=== PATIENT | male | born 1950 | race African-American/Black ===

== ENCOUNTER 2022-04-19 21:06 | Observation (INO) | payer OTHER ==
--- OUTSIDE RECORDS SUMMARY | 2022-04-19 21:10 | XMS REPORT | Continuity of Care Document ---
:1950 Author Organization [facility] t Address [address] [place] [address] Care Team Providers Name Role Phone Provider MD, Not In System Primary Care Physician Unavailabl e Karlene Attending Clinician Unavailable Jayy Hogan Attending Clinician [phone] CUBA WESTON Attending Clinician Unavailable Karlene Admitting Clinician Unavailable Payers Payer Name Policy Type Policy Number Effective Date Expiration Date [facility] [id number] 2002 00:00:00 Problems Condition Condition Condition Status Onset Resolution Last Treating Co mments Source Name Details Category Date Date Treatment Clinician Date Pain in Pain in Problem Active [facility] pelvis Pelvis 908 Orthope 00:00: dic 00 Sports Medicin e Osteoarthr Osteoarthr Problem Active A zalea itis of itis of 11-18 Orthope right hip Right Hip 00:00: dic joint Joint 00 Sports Medicin e Osteoarthr Osteoarthr Problem Active A zalea itis of itis of 08 Orthope left hip Left Hip 00:00: dic joint Joint 00 Sports Medicin e Encounter Encounter Disease Active 2020-03 Met aleydai for for 03-16 completion completion 00:00: Ho spita of form of form 00 l with with patient patient Acute Acute Disease Active [facility] right-side right-side 11-12 d low back d low back 00:00: Ho spita pain pain 00 l without without sciatica sciatica Follow-up Follow-up Disease Active Met rosalind examinatio examinatio 1-09 st n n 00:00: Hospita following following 00 l surgery surgery Lumbar Lumbar Disease Active 2018-03 [facility] radiculopa radiculopa 0-10 st thy, right thy, right 00:00: Ho spita 00 l Cervical Cervical Disease Active Metho di spondylosi spondylosi 5-01 st s without s without 00:00: Hosp karla myelopathy myelopathy 00 l Allergies, Adverse Reactions, Alerts Allergy Allergy Status Severity Reaction(s) Onset Inactive Treating Comm ents Source Name Type Date Date Clinician Latex Propensi Active Itching 2018-03 redness Method i ty to 0 st adverse 00:00: Hospita reaction 00 l s to drug Penicill Propensi Active Swelling 2018-03 Meth jude in G ty to 0-09 st adverse 00:00: Hospita reaction 00 l s to drug PENICILL Allergy Active [facility] INS to Orthope substanc dic e Sports Medicin e Family History Family Member Diagnosis Comments Start Date Stop Date Source Natural brother Cancer [facility] Natural father Cancer [facility] Natural mother Cancer [facility] Social History Social Habit Start Date Stop Date Quantity Comments Source History of tobacco Current smoker [facility] Alcohol intake 2021-01-14 2021-01-14 Current drinker of [facility] 00:00:00 00:00:00 alcohol (finding) Hospita l Cigarettes smoked 2018-12-19 2018-12-[address] [facility] st current (pack per 00:00:00 00:00:00 Hospita l day) - Reported Cigarette 2018-12-19 2018-12-19 [facility] pack-years 00:00:00 00:00:00 Hospital Tobacco use and 2018-12-19 2018-12-19 Smokeless tobacco [facility] exposure 00:00:00 00:00:00 non-user Hospital Alcohol Comment 2018-12-19 2018-12-19 ocassionally 1-2 Met aleydaist 00:00:00 00:00:00 drinks Hospital Sex Assigned At [birth year] [facility] 00:00:00 00:00:00 Hospital Smoking Status Start Date Stop Date Source Former Smoker [facility] Medications Ordered Filled Start Stop Current Ordering Indication Dosage Frequency Signature Comments Components Source Medication Medication Date Date Medication? Clinician (SIG) Name Name MICA 10 0 Yes 10mg QD Take 10 mg [facility] mg tablet 2-[address] 00:00: nightly. Hospita 00 l azithromyci azithromyci No azithromyc [facility] n 250 mg n 250 mg in 250 mg Or thope tablet TAKE tablet TAKE tablet dic 2 TABLETS 2 TABLETS TAKE 2 Spo rts BY MOUTH BY MOUTH TABLETS BY M edicin TODAY, THEN TODAY, THEN MOUTH e TAKE 1 TAKE 1 TODAY, TABLET TABLET THEN TAKE DAILY FOR 4 DAILY FOR 4 1 TABLET DAYS DAYS DAILY FOR 4 DAYS gabapentin gabapentin No gabapentin [facility] 300 mg 300 mg 300 mg Orthope capsule capsule capsule dic TAKE 1 TAKE 1 TAKE 1 Sports CAPSULE BY CAPSULE BY CAPSULE BY Medicin MOUTH 3 MOUTH 3 MOUTH 3 e TIMES A DAY TIMES A DAY TIMES A FOR 30 FOR 30 DAY FOR 30 DAYS. DAYS. DAYS. Guaiatussin Guaiatussin No Guaiatussi [facility] AC 10 AC 10 n AC 10 Orthope mg-100 mg/5 mg-100 mg/5 mg-100 dic mL oral mL oral mg/5 mL Sports liquid TAKE liquid TAKE oral M edicin ONE ONE liquid e TEASPOON BY TEASPOON BY TAKE ONE MOUTH EVERY MOUTH EVERY TEASPOON FOUR TO SIX FOUR TO SIX BY MOUTH HOURS. HOURS. EVERY FOUR TO SIX HOURS. losartan 50 losartan 50 No losartan [facility] mg tablet mg tablet 50 mg Orth ope TAKE 1 TAKE 1 tablet dic TABLET BY TABLET BY TAKE 1 Spo rts MOUTH EVERY MOUTH EVERY TABLET BY Medicin DAY NEED DAY NEED MOUTH e OFFICE OFFICE EVERY DAY VISIT VISIT NEED OFFICE VISIT meloxicam meloxicam No 1 meloxicam [facility] 15 mg 15 mg 15 mg Orthope tablet Take tablet Take tablet dic 1 tablet by 1 tablet by Take 1 Sports oral route oral route tablet by Medicin in the in the oral route e morning. morning. in the morning. meloxicam meloxicam No meloxicam [facility] 7.5 mg 7.5 mg 7.5 mg Orthope tablet TAKE tablet TAKE tablet dic 1 TABLET BY 1 TABLET BY TAKE 1 Sports MOUTH EVERY MOUTH EVERY TABLET BY Medicin DAY FOR 30 DAY FOR 30 MOUTH e DAYS DAYS EVERY DAY FOR 30 DAYS tramadol tramadol No tramadol Aza holli 37.5 37.5 37.5 Orthope mg-acetamin mg-acetamin mg-acetami dic ophen 325 ophen 325 nophen 325 Sports mg tablet mg tablet mg tablet Medicin TAKE 1 -2 TAKE 1 -2 TAKE 1 -2 e TABLETS , TABLETS , TABLETS , EVERY 4 TO EVERY 4 TO EVERY 4 TO 6 HOURS 6 HOURS 6 HOURS NEEDED FOR NEEDED FOR NEEDED FOR PAIN,DO NOT PAIN,DO NOT PAIN,DO TO EXCEED 8 TO EXCEED 8 NOT TO TABLETS PER TABLETS PER EXCEED 8 DAY DAY TABLETS PER DAY Vital Signs Vital Name Observation Time Observation Value Comments Source Height 2021-11-18 00:00:00 73 [in_i] [facility] Body Weight 2021-11-18 00:00:00 230 [lb_av] [facility] Procedures Procedure Date / Time Performed Performing Clinician Catherine richmond RADEX PELVIS 03/142021-11-18 00:00:00 [facility] VIEWS Sports Medicine Back Surgery [facility] Hand Surgery [facility] Knee Surgery [facility] Neck Surgery [facility] Plan of Care Planned Activity Planned Date Details Comments Source Future Scheduled 2022-02-23 Hepatitis C screening [facility] Test 14:24:57 (procedure) [code = [id number]] Future Scheduled 2022-02-23 COLONOSCOPY SCREENING [facility] Test 14:24:57 [code = COLONOSCOPY SCREENING] Future Scheduled 2022-02-23 SHINGLES VACCINES (1 [facility] Test 14:24:57 of 2) [code = SHINGLES VACCINES (1 of 2)] Future Scheduled 2022-02-23 65+ PNEUMOCOCCAL [facility] Test 14:24:57 VACCINE (1 - PCV) [code = 65+ PNEUMOCOCCAL VACCINE (1 - PCV)] Future Scheduled 2022-02-23 COVID-19 VACCINE (2 - [facility] Test 14:24:57 Moderna series) [code = COVID-19 VACCINE (2 - Moderna series)] Future Scheduled 2022-02-23 INFLUENZA VACCINE [facility] Test 14:24:57 [code = INFLUENZA VACCINE] Encounters Start End Encounter Admission Attending Care Care Encounter Source Date/Time Date/Time Type Type Clinicians Facility Department ID 2021-11-18 2021-11-18 Outpatient FOG_Burke_R AOSM AOSM [id number] [facility] 00:00:00 00:00:00 Ayaka [id number] Ortho pe dic Sports Medicin e 2021-11-18 2021-11-18 Outpatient DEANA Hogan AOSM [id number] 00:00:00 00:00:00 Jayy Lutz [id number] 2021-11-18 2021-11-18 Jayy Lutz AOS[facility] [place] - Ortho [id number] [facility] 00:00:00 00:00:00 MD Edison: Nilda Garcia - Orthopyi [address] [facility] [place], [address], [place] [address] , Ph. [phone] 2021-11-16 2021-11-16 Outpatient FOG_Burke_R AOSM AOSM [id number] [facility] 00:00:00 00:00:00 Ayaka [id number] Ortho pe dic Sports Medicin e 2021-11-10 2021-11-10 Outpatient FOG_Burke_R AOSM AOSM [id number] Olive 00:00:00 00:00:00 Ayaka [id number] Ortho pe dic Sports Medicin e 2021-11-03 2021-11-03 Outpatient FOG_Burke_R AOSM AOSM [id number] Olive 00:00:00 00:00:00 Ayaka [id number] Ortho pe dic Sports Medicin e 2021-01-14 2021-01-14 Outpatient [facility] [id number] [place] 00:00:00 00:00:00 CUBA 745 Method i 2021-01-14 2021-01-14 Outpatient [facility] [id number] [place] 00:00:00 00:00:00 CUBA 864 Method i 2020-12-28 2020-12-28 Outpatient [facility] [id number] [place] 00:00:00 00:00:00 CUBA [address] 2020-11-12 2020-11-12 Outpatient [facility] [id number] [place] 00:00:00 00:00:00 CUBA [address] 2020-11-12 2020-11-12 Outpatient [facility] [id number] [place] 00:00:00 00:00:00 CUBA [address] 2020-03-23 2020-03-23 Outpatient [facility] [id number] [place] 00:00:00 00:00:00 CUBA [address] 2020-03-23 2020-03-23 Outpatient [facility] [id number] [place] 00:00:00 00:00:00 CUBA [address] Results This patient has no known results.
[2022-04-19] MEDS ORDERED: ASPIRIN 81 MG CHEWABLE TABLET ONE (21:29)
[2022-04-19 22:03] LABS: Absolute Lymphocytes (CBC) 1.4 K/uL (0.7-4.9); Hematocrit 37.1 % (39.6-49.0); Lymphocytes % 28.4 % (15.3-44.8); MCV 74.5 fL (80-100); MPV 6.9 fL (7.6-11.3); RBC Red Blood Cell Count 4.97 M/uL (4.33-5.43)
--- NOTE | 2022-04-19 22:12 | RAD REPORT ---
EXAM DESCRIPTION: CT - Angio Aorta For Dissection - 04/19/2022 9:57 pm CLINICAL HISTORY: Chest pain radiating to the back. PAIN COMPARISON: No comparisons TECHNIQUE: CT angiography of the aorta was performed with MIPs. All CT scans are performed using dose optimization technique as appropriate and may include automated exposure control or mA/KV adjustment according to patient size. FINDINGS: A left aortic arch is present with normal branching pattern of the great vessels.No acute aortic finding is seen such as aneurysm, penetrating ulcer or dissection. The celiac axis, SMA, ADRIANNE and renal arteries are patent. No evidence of pulmonary embolism. The lungs are clear. The liver demonstrates no focal mass or biliary dilatation.The spleen, pancreas, adrenal glands and k idneys are within normal limits for arterial phase imaging.4.6 cm benign left renal cyst. No bowel obstruction, free fluid or abscess.No pathologic enlarged lymphadenopathy identified. Moderate lumbar degenerative changes. IMPRESSION: No acute aortic finding is demonstrated.
--- NOTE | 2022-04-19 22:13 | RAD REPORT ---
EXAM DESCRIPTION: RAD - Chest Single View - 04/19/2022 10:06 pm CLINICAL HISTORY: CHEST PAIN Chest pain. COMPARISON: Chest Pa And Lat (2 Views) dated 08/30/2018; Chest Pa And Lat (2 Views) dated 10/02/2017; Chest Pa And Lat (2 Views) dated 06/16/2017; CHEST SINGLE VIEW dated 05/11/2012 FINDINGS: Portable technique limits examination quality. The lungs are grossly clear. The heart is normal in size. No displaced fractures. IMPRESSION: No acute intrathoracic process suspected.
[2022-04-19 22:19] LABS: Magnesium 2.1 mg/dL (1.6-2.4); Potassium 3.7 mmol/L (3.5-5.1); Troponin High Sensitivity 16.9 pg/mL (<58.9)
[2022-04-19] MEDS ORDERED: NA CHLORIDE 0.9% 1,000 ML ONE (22:56)
--- NOTE | 2022-04-19 23:03 | ER ---
Nurse's Notes [facility] Name: Chu Desouza Age: 71 yrs Sex: Male : 1950 Arrival Date: 04/19/2022 Time: 21:10 Bed 5 Private MD: Diagnosis: Chest pain, unspecified Presentation: 04/19 21:27 Chief complaint: Patient states: C/o chest pain 10 since 3 PM, states "I was lifting ll3 a couple of 55 lb bags then I started to feel the pain", states pain started in left pectoral area then moved to midsternal area. Coronavirus screen: Vaccine status: Patient reports receiving the 2nd dose of the covid vaccine. At this time, the client does not indicate any symptoms associated with coronavirus-19. Ebola Screen: No symptoms or risks identified at this time. Initial Sepsis Screen: Does the patient meet any 2 criteria? No. Patient's initial sepsis screen is negative. Does the patient have a suspected source of infection? No. Patient's initial sepsis screen is negative. Risk Assessment: Do you want to hurt yourself or someone else? Patient reports no desire to harm self or others. Onset of symptoms was April 19, 2022 at 15:00. 21:27 Method Of Arrival: Ambulatory ll3 21:27 Acuity: YG 2 ll3 Triage Assessment: 21:31 General: Appears uncomfortable, Behavior is calm, cooperative. Pain: Complains of pain ll3 in mid-sternal area Pain does not radiate. Pain currently is 3 out of 10 on a pain scale. Pain began 3 pm. Cardiovascular: Reports chest pain, Patient's skin is warm and dry. Chest pain is described as mild, is located in substernal area began 3 pm. Respiratory: Respiratory effort is even, unlabored, Respiratory pattern is regular, symmetrical. Derm: Skin is pink, warm \\T\\ dry. Historical: - Allergies: 21:31 PENICILLINS; ll3 - Home Meds: 21:31 losartan 10 MG oral [Active]; ll3 - PMHx: 21:31 Hypertensive disorder; ll3 - PSHx: 21:31 Back SX, Neck SX; ll3 - Immunization history:: Client reports receiving the 2nd dose of the Covid vaccine. - Social history:: Smoking status: Patient denies any tobacco usage or history of. Screenin:40 [facility] ED Fall Risk Assessment (Adult) History of falling in the last 3 months, mb9 including since admission No falls in past 3 months (0 pts) Confusion or Disorientation No (0 pts) Intoxicated or Sedated No (0 pts) Impaired Gait No (0 pts) Mobility Assist Device Used No (0 pt) Altered Elimination No (0 pt) Score/Fall Risk Level 0 - 2 = Low Risk Oriented to surroundings, Maintained a safe environment, Educated pt \\T\\ family on fall prevention, incl call for assistance when getting out of bed. Abuse screen: Denies threats or abuse. Nutritional screening: No deficits noted. Nutritional screening: No deficits noted. Tuberculosis screening: No symptoms or risk factors identified. Assessment: 21:36 General: Appears in no apparent distress. comfortable, Behavior is calm, cooperative, mb9 appropriate for age. Pain: Complains of pain in chest Pain radiates to mid-sternal area Pain currently is 2 out of 10 on a pain scale. Quality of pain is described as burning, Pain began suddenly, Is intermittent. Cardiovascular: Heart tones S1 S2 present Capillary refill < 3 seconds is brisk Patient's skin is warm and dry. Rhythm is regular. Respiratory: Airway is patent Respiratory effort is even, unlabored, Respiratory pattern is regular, symmetrical. GI: Abdomen is round non-distended, Bowel sounds present X 4 quads. Abd is soft and non tender X 4 quads. Derm: Skin is intact, Skin is dry, Skin is normal, Skin temperature is warm. Musculoskeletal: Range of motion: intact in all extremities. 21:40 Reassessment: pt taken to CT via stretcher. mb9 22:43 Neuro: Level of Consciousness is awake, alert, obeys commands, Oriented to person, mb9 place, time, situation, Appropriate for age. Cardiovascular: Reports chest pain, "that comes and goes but it's not as bad right now". Respiratory: Airway is patent Respiratory effort is even, unlabored, Respiratory pattern is regular, symmetrical. Derm: Skin is pink, warm \\T\\ dry. 23:37 Cardiovascular: Rhythm is regular. Respiratory: Airway is patent Respiratory effort is mb9 even, unlabored, Respiratory pattern is regular, symmetrical. Derm: Skin is pink, warm \\T\\ dry. Vital Signs: 21:27 BP 142 / 110; Pulse 108; Resp 18; Temp 97.8(TE); Pulse Ox 100% on R/A; Weight 102.06 kg ll3 (R); Height 6 ft. 1 in. (185.42 cm) (R); Pain 3/10; 22:44 BP 140 / 97; Pulse 90; Resp 16; Pulse Ox 100% on R/A; Pain 2/10; mb9 23:37 BP 137 / 97; Pulse 88; Resp 17; Pulse Ox 98% ; mb9 21:27 Body Mass Index 29.68 (102.06 kg, 185.42 cm) ll3 ED Course: 21:10 Patient arrived in ED. ja2 21:14 Placed in gown. Bed in low position. Call light in reach. Side rails up X 1. Client mb9 placed on continuous cardiac and pulse oximetry monitoring. NIBP monitoring applied. telemetry monitor on. 21:16 Saundra Hurtado FNP-C is PHCP. kb 21:16 Monroe Villalta MD is Attending Physician. kb 21:24 Heidy Malave RN is Primary Nurse. mb9 21:25 EKG done, by ED staff, reviewed by Saundra DUBOSE. Inserted saline lock: 18 mb9 gauge in right forearm, using aseptic technique. Blood collected. 21:31 Triage completed. ll3 21:31 Arm band placed on Patient placed in an exam room, on a stretcher, on pulse oximetry. ll3 EKG completed in triage. Results shown to MD. 21:43 Basic Metabolic Panel Sent. tw5 21:43 CBC with Diff Sent. tw5 21:43 Magnesium Sent. tw5 21:43 NT PRO-BNP Sent. tw5 21:43 Troponin HS Sent. tw5 21:58 CT Aorta for Dissection In Process Unspecified. EDMS 22:08 XRAY Chest (1 view) In Process Unspecified. EDMS 22:46 No provider procedures requiring assistance completed. mb9 23:03 Juan Ramon Thomson MD is Hospitalizing Provider. kb 23:37 SARS RAPID Sent. mb9 02 01:58 Patient admitted, IV remains in place. Patient maintains SpO2 saturation greater than as6 95% on room air. Administered Medications: 04/19 21:27 Drug: Aspirin Chewable Tablet 324 mg Route: PO; mb9 23:33 Follow up: Response: No adverse reaction mb9 22:58 Drug: NS 0.9% 1000 ml Route: IV; Rate: 1000 ml; Site: right forearm; mb9 04/20 01:58 Follow up: Response: No adverse reaction; IV Status: Completed infusion; IV Intake: as6 1000ml Medication: 04/19 22:47 VIS not applicable for this client. mb9 Intake: 04/20 01:58 IV: 1000ml; Total: 1000ml. as6 Outcome: 04/19 23:03 Decision to Hospitalize by Provider. kb 04/20 01:57 Admitted to Tele accompanied by tech, via wheelchair, room 422, with chart, Report as6 called to Jeo KINNEY Condition: stable Instructed on the need for admit. 01:58 Patient left the ED. as6 Signatures: Dispatcher [employer] EDSaundra Dueñas, DUMPER-C DUMPER-Ckb [place] Tiffany tw5 Jorge Plummer RN RN as6 Vivien Osborn RN RN ll3 Heidy Malave, RN RN mb9
--- NOTE | 2022-04-19 23:03 | EDPHYS ---
Physician Documentation [facility] Name: Chu Desouza Age: 71 yrs Sex: Male : 1950 Arrival Date: 04/19/2022 Time: 21:10 Bed 5 Private MD: ED Physician Monroe Villalta HPI: 04/19 22:34 This 71 yrs old Black Male presents to ER via Ambulatory with complaints of Chest Pain. kb 22:58 The patient or guardian reports chest pain that is located primarily in the substernal kb area. Onset: at 15:00. The pain radiates to left chest. Associated signs and symptoms: The patient has no apparent associated signs or symptoms. The chest pain is described as a pressure. Duration: The patient or guardian reports a single episode. Modifying factors: The symptoms are alleviated by nothing. the symptoms are aggravated by cough. Severity of pain: At its worst the pain was moderate in the emergency department the pain is unchanged. The patient has not experienced similar symptoms in the past. The patient has not recently seen a physician. Historical: - Allergies: 21:31 PENICILLINS; ll3 - Home Meds: 21:31 losartan 10 MG oral [Active]; ll3 - PMHx: 21:31 Hypertensive disorder; ll3 - PSHx: 21:31 Back SX, Neck SX; ll3 - Immunization history:: Client reports receiving the 2nd dose of the Covid vaccine. - Social history:: Smoking status: Patient denies any tobacco usage or history of. ROS: 22:57 Constitutional: Negative for fever, chills, and weight loss. kb 22:57 Cardiovascular: Positive for chest pain, Negative for edema, orthopnea, palpitations, paroxysmal nocturnal dyspnea. 22:57 All other systems are negative. Exam: 22:57 Constitutional: This is a well developed, well nourished patient who is awake, alert, kb and in no acute distress. Head/Face: Normocephalic, atraumatic. ENT: Moist Mucous membranes Cardiovascular: Regular rate and rhythm with a normal S1 and S2. No gallops, murmurs, or rubs. No pulse deficits. Respiratory: Respirations even and unlabored. No increased work of breathing. Talking in full sentences Abdomen/GI: Soft, non-tender. No distention Skin: Warm, dry with normal turgor. Normal color. MS/ Extremity: Pulses equal, no cyanosis. Neurovascular intact. Full, normal range of motion. Neuro: Awake and alert, GCS 15, oriented to person, place, time, and situation. Moves all extremities. Normal gait. 04/20 00:03 ECG was reviewed by the Attending Physician. Vital Signs: 04/19 21:27 BP 142 / 110; Pulse 108; Resp 18; Temp 97.8(TE); Pulse Ox 100% on R/A; Weight 102.06 kg ll3 (R); Height 6 ft. 1 in. (185.42 cm) (R); Pain 3/10; 22:44 BP 140 / 97; Pulse 90; Resp 16; Pulse Ox 100% on R/A; Pain 2/10; mb9 23:37 BP 137 / 97; Pulse 88; Resp 17; Pulse Ox 98% ; mb9 21:27 Body Mass Index 29.68 (102.06 kg, 185.42 cm) ll3 MDM: 21:16 Patient medically screened. kb 22:34 Data reviewed: vital signs, nurses notes. kb 22:58 Differential diagnosis: abnormal EKG, acute myocardial infarction, chest wall pain. The patient was given aspirin in the Emergency Department. Consideration of Admission/Observation Patient was admitted/placed on observation. Management of patient was discussed with the following: Primary Care Provider: Dr Thomson accepts pt for admission. Scoring Tools HEART Score: Total Score = 3. Counseling: I had a detailed discussion with the patient and/or guardian regarding: the historical points, exam findings, and any diagnostic results supporting the discharge/admit diagnosis, lab results, radiology results, the need for further work-up and treatment in the hospital. 04/19 21:24 Order name: Basic Metabolic Panel; Complete Time: 22:22 kb 04/19 21:24 Order name: CBC with Diff; Complete Time: 22:22 kb 04/19 21:24 Order name: Magnesium; Complete Time: 22:22 kb 04/19 21:24 Order name: NT PRO-BNP; Complete Time: 22:22 kb 04/19 21:24 Order name: Troponin HS; Complete Time: 22:22 kb 04/19 22:17 Order name: CREATININE WHOLE BLOOD; Complete Time: 22:22 EDMS 04/19 21:24 Order name: XRAY Chest (1 view); Complete Time: 22:22 kb 04/19 21:24 Order name: EKG; Complete Time: 21:24 kb 04/19 21:24 Order name: Cardiac monitoring; Complete Time: 21:24 kb 04/19 21:24 Order name: EKG - Nurse/Tech; Complete Time: 21:24 kb 04/19 21:24 Order name: CT Aorta for Dissection; Complete Time: 22:22 kb 04/19 23:33 Order name: SARS RAPID mb9 04/19 21:24 Order name: IV Saline Lock; Complete Time: 21:32 kb 04/19 21:24 Order name: Labs collected and sent; Complete Time: 21:43 kb 04/19 21:24 Order name: O2 Per Protocol; Complete Time: 21:24 kb 04/19 21:24 Order name: O2 Sat Monitoring; Complete Time: 21:24 kb EC/08 00:03 Rate is 94 beats/min. Rhythm is regular. Left axis deviation noted. ND interval is kb normal at 164 msec. QRS interval is normal at 110 msec. QT interval is normal at 467 msec. Administered Medications: 04/19 21:27 Drug: Aspirin Chewable Tablet 324 mg Route: PO; mb9 23:33 Follow up: Response: No adverse reaction mb9 22:58 Drug: NS 0.9% 1000 ml Route: IV; Rate: 1000 ml; Site: right forearm; mb9 04/20 01:58 Follow up: Response: No adverse reaction; IV Status: Completed infusion; IV Intake: as6 1000ml Disposition Summary: 04/19/22 23:03 Hospitalization Ordered Hospitalization Status: Observation kb Provider: Juan Ramon Thomson Location: Telemetry/[facility]Sur (observation) kb Condition: Stable kb Problem: new kb Symptoms: are unchanged kb Bed/Room Type: Standard Room Assignment: 422(04/20/22 01:42) Diagnosis - Chest pain, unspecified kb Forms: - Medication Reconciliation Form kb - SBAR form kb Signatures: Dispatcher [employer] Saundra Reese, GRACY SILVEIRAP-Megha Moura RN RN Vivien Smith RN RN ll3 Heidy Malave RN RN mb9 Jorge Plummer RN as6 Corrections: (The following items were deleted from the chart) 00:04 00:03 Rate is 94 beats/min. Rhythm is regular. QRS [place] is Normal. ND interval is kb normal at 164 msec. QRS interval is normal at 110 msec. QT interval is normal at 467 msec. kb 01:42 07 23:03 kb
[2022-04-20 00:03] LABS: SARS-CoV-2 Antigen Rapid Res Negative (Negative)
[2022-04-20 02:28] VITALS: O2SAT 98
[2022-04-20 03:20] LABS: Absolute Lymphocytes (CBC) 1.4 K/uL (0.7-4.9); Hematocrit 35.3 % (39.6-49.0); Lymphocytes % 33.5 % (15.3-44.8); MCV 73.4 fL (80-100); MPV 6.9 fL (7.6-11.3)
[2022-04-20 03:27] LABS: Potassium 3.7 mmol/L (3.5-5.1)
[2022-04-20 03:46] VITALS: BMI 29.7
[2022-04-20] MEDS ORDERED: PNEUMOCOCCAL VACCINE 0.5 ML IMVAC ONE (08:00)
[2022-04-20] MEDS ORDERED: INFLUENZA VACCINE (for 6+ mo) 0.5 ML DOSE IMVAC ONE (08:00)
[2022-04-20 14:58] VITALS: BP 127/86; TEMP 98
--- NOTE | 2022-04-20 17:31 | SS ---
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 He just returned to work after a 10-12 day absence and about an hour after this, he felt sudden onset of rather significant pain in the lower sternal area, increased with movement, did not change with sarai thing, was not short of breath; however, he was quite hunched over and had some difficulty mobilizing and went to an urgent care where they thought maybe was a possible aortic problem based on the preli minary chest x-ray and suggested he come to the ER. He was seen in the ER. A chest x-ray is basical ly interpreted as within normal limits as was a CT angio for PE. He had an injection for the pain, f elt much better, and continued to feel better throughout his hospital stay. Cardiac workup including enzymes, EKGs were all negative. He did have slight increase in creatinine, which he felt secondary to the fact that he had been drinking much water and this morning's blood work was better. He also has borderline anemia. This will be evaluated as an outpatient. He did state over the past few week s he noted some discomfort right at the junction on the xiphoid in the sternum where he felt there wa s something there and since this episode, it is no longer palpable. Physical exam is entirely normal except for some point tenderness at this area, was felt to be the cartilage and tendon. He was ther efore discharged to follow up in 1 week at the office, finish his antibiotic for URI which he had bee n on for 4 or 5 days and was considerably better, did not attribute any of his URI symptoms to this e pisode. Vital signs were stable. He was discharged in good condition. Final Diagnoses: Chest pain secondary to tendinitis of the lower sternum and xiphoid junction; hyper tension, controlled. HR/MODL Voice ID: [id number] Report ID: [id number]
--- NOTE | 2022-04-21 07:58 | EKG ---
Test Date: 2022-04-19 Test Time: 21:23:38 Garden Worker: LL MEASUREMENT RESULTS: Intervals: Rate: 94 KS: 164 QRSD: 110 QT: 374 QTc: 467 [place]: P: 46 KS: 164 QRS: -53 T: 28 INTERPRETIVE STATEMENTS: Normal sinus rhythm Left anterior fascicular block Moderate voltage criteria for LVH, may be normal variant Nonspecific T wave abnormality Prolonged QT Abnormal ECG Compared to ECG 05/16/2012 01:11:08 Left anterior fascicular block now present T-wave abnormality now present Prolonged QT interval now present Sinus bradycardia no longer present Left-axis deviation no longer present Electronically Signed On 04-21-22 07:55:10 PAYROLL ADMINISTRATOR by Moris Timmons
[2022-04-21] MEDS ORDERED: LOSARTAN POTASSIUM 50 MG TABLET PO SCH (09:00)
== END 2022-04-20 17:15 | disposition home or self-care (01) ==
LOC: ER 21:06 → ERHOLD 23:40 → 4TH 04-20 01:47
PROVIDERS: ADMIT Family Medicine; ATTEND Family Medicine
DX: R07.9 Chest pain, unspecified (principal); M77.9 Enthesopathy, unspecified; I10 Essential (primary) hypertension; Z88.0 Allergy status to penicillin; Z20.822 Contact with and (suspected) exposure to COVID-19; Z23 Encounter for immunization
CPT/HCPCS: 93005; 85025 ×2; 80048 ×2; 36415; 83735; 82565; 84484 ×3; 83880; 71275; 74175; 71045; 87811; Q9967; J7030; G0378

== ENCOUNTER 2022-08-14 00:55 | Emergency (ER) | payer OTHER ==
--- OUTSIDE RECORDS SUMMARY | 2022-08-14 00:59 | XMS REPORT | Continuity of Care Document ---
:[address] [facility] t Address [address] [place] [address] Care Team Providers Name Role Phone Provider MD, Not In System Primary Care Physician Unavailabl e Karlene Attending Clinician Unavailable Jayy Hogan Attending Clinician [phone] CUBA [place] Attending Clinician Unavailable Karlene Admitting Clinician Unavailable Payers Payer Name Policy Type Policy Number Effective Date Expiration Date [facility] [id number] 2002 00:00:00 Problems Condition Condition Condition Status [...] Active A zalea itis of itis of 908 Orthope left hip Left Hip 00:00: dic joint Joint 00 Sports Medicin e Encounter Encounter Disease Active 2020-03 Met [facility] for for 03-16 completion completion 00:00: Ho spita of form of form 00 l with with patient patient Acute Acute Disease Active [facility] right-side right-side 11-12 d low back d low back 00:00: Ho spita pain pain 00 l without without sciatica sciatica Follow-up Follow-up Disease Active Met [facility]odi examinatio examinatio 09 st n n 00:00: Hospita following following [...] 2018-03 Meth jude in G ty to 009 st adverse 00:00: Hospita reaction 00 l s to drug PENICILL Allergy Active [facility] to Orthope substanc dic e Sports Medicin e Family History Family Member Diagnosis Comments Start Date Stop Date Source Natural brother Cancer [facility] Natural father Cancer [facility] Natural mother Cancer [facility] Social History Social Habit Start Date Stop Date Quantity Comments Source History of tobacco Cigarette Smoker Hinduism use [facility] Gender identity [facility] Sexual orientation Method ist [facility] History of Social 2022-06-14 2022-06-[address] function 00:00:00 00:00:00 Hospital Alcohol intake 2021-01-14 2021-01-14 Current drinker of [facility] 00:00:00 00:00:00 alcohol (finding) [facility] Tobacco use and 2018-12-19 2018-12-19 Smokeless tobacco [facility] exposure 00:00:00 00:00:00 non-user Hospital Cigarettes smoked 2018-12-19 2018-12-[address] current (pack per 00:00:00 00:00:00 [facility] day) - Reported Cigarette 2018-12-19 2018-12-19 Hinduism pack-years 00:00:00 00:00:00 Hospital Alcohol Comment 2018-12-19 2018-12-19 ocassionally 1-2 [facility] 00:00:00 00:00:00 drinks [facility] Sex Assigned At [birth year] Hinduism 00:00:00 00:00:00 Hospital Smoking Status Start Date Stop Date Source Former Smoker [facility] Medications Ordered Filled Start Stop Current Ordering Indication Dosage Frequency Signature Comments Components Source Medication Medication Date Date Medication? Clinician (SIG) Name Name MICA Yes 10mg QD Take 10 mg [facility] mg tablet 2-[address] 00:00: nightly. Hospita 00 l [facility] Yes 10mg QD Take 10 mg [facility] mg tablet 2-[address] 00:00: nightly. Hospita l azithromyci azithromyci No azithromyc [facility] n [...] Planned Date Details Comments Source Future Scheduled 2022-06-15 Hepatitis C screening [facility] Test 16:40:51 (procedure) [code = 400506091] Future Scheduled 2022-06-15 COLONOSCOPY SCREENING [facility] Test 16:40:51 [code = COLONOSCOPY SCREENING] Future Scheduled 2022-06-15 SHINGLES VACCINES (1 Met [facility] Test 16:40:51 of 2) [code = SHINGLES VACCINES (1 of 2)] Future Scheduled 2022-06-15 65+ P[facility]OCOCCAL [facility] Test 16:40:51 VACCINE (1 - PCV) [code = 65+ PNEUMOCOCCAL VACCINE (1 - PCV)] Future Scheduled 2022-06-15 COVID-19 VACCINE (2 - [facility] Test 16:40:51 Moderna series) [code = COVID-19 VACCINE (2 - Moderna series)] Future Scheduled 2022-06-15 INFLUENZA VACCINE [facility] Test 16:40:51 [code = INFLUENZA VACCINE] Future Scheduled 2022-02-23 Hepatitis C screening [facility] Test 14:24:57 (procedure) [code = [id number]] Future Scheduled 2022-02-23 COLONOSCOPY SCREENING [facility] Test 14:24:57 [code = COLONOSCOPY SCREENING] Future Scheduled 2022-02-23 SHINGLES VACCINES (1 Met [facility] Test 14:24:57 of 2) [code = SHINGLES VACCINES (1 of 2)] Future Scheduled 2022-02-23 65+ P[facility]UMOCOCCAL [facility] Test 14:24:57 VACCINE (1 - PCV) [code = 65+ PNEUMOCOCCAL VACCINE (1 - PCV)] Future Scheduled 2022-02-23 COVID-19 VACCINE (2 - [facility] Test 14:24:57 Moderna series) [code = COVID-19 VACCINE (2 - Moderna series)] Future Scheduled 2022-02-23 INFLUENZA VACCINE [facility] Test 14:24:57 [code = INFLUENZA VACCINE] Encounters Start End Encounter Admission Attending Care Care Encounter Source Date/Time Date/Time Type Type Clinicians Facility Department ID 2021-11-18 2021-11-18 Outpatient FOG_Burke_R AOSM AO [id number] [facility] 00:00:00 00:00:00 Ayaka [id number] Ortho dic Sports Medicin e 2021-11-18 2021-11-18 Outpatient DEANA Hogan [id number] 00:00:00 00:00:00 Jayy Lutz [id number] 2021-11-18 2021-11-18 Jayy [place] - Ortho [id number] [facility] 00:00:00 00:00:00 MD Edison: Nilda Garcia - Orthopyi [id number] Bernie FOG_Ofc dic [place], [place] [address] [place] [address] , Ph. [phone] 2021-11-16 2021-11-16 Outpatient FOG_Burke_R AOSM AOSM [id number] [facility] 00:00:00 00:00:00 Ayaka [id number] Ortho pe dic Sports Medicin e 2021-11-10 2021-11-10 Outpatient FOG_Burke_R AOSM AOSM [id number] [facility] 00:00:00 00:00:00 Ayaka [id number] Ortho pe dic Sports Medicin e 2021-11-03 2021-11-03 Outpatient FOG_Burke_R AOSM AOSM [id number] [facility] 00:00:00 00:00:00 Ayaka [id number] Ortho pe dic Sports Medicin e 2021-01-14 2021-01-14 Outpatient [place], [facility] [id number] [place] 00:00:00 00:00:00 CUBA [address] 2021-01-14 2021-01-14 Outpatient [place], [facility] [id number] [place] 00:00:00 00:00:00 CUBA [address] 2020-12-28 2020-12-28 Outpatient [place], [facility] [id number] [place] 00:00:00 00:00:00 CUBA [address] 2020-11-12 2020-11-12 [facility] [id number] [place] 00:00:00 00:00:00 CUBA [address] 2020-11-12 2020-11-12 Outpatient [place], [facility] [id number] [place] 00:00:00 00:00:00 CUBA [address] 2020-03-23 2020-03-23 [facility] [id number] [place] 00:00:00 00:00:00 CUBA [address] 2020-03-23 2020-03-23 [facility] [id number] [place] 00:00:00 00:00:00 CUBA [address] Results This patient has no known results.
[2022-08-14] MEDS ORDERED: NA CHLORIDE 0.9% 100 ML ONE (01:50)
[2022-08-14] MEDS ORDERED: METHOCARBAMOL 1,000 MG/10 ML VIAL ONE (01:50)
[2022-08-14] MEDS ORDERED: KETOROLAC 30 MG/ML INJ ONE (01:50)
[2022-08-14] MEDS ORDERED: HYDROCODONE/APAP 10/325 TAB ONE (01:50)
[2022-08-14] MEDS ORDERED: METHYLPREDNISOLONE 125 MG INJ ONE (01:50)
[2022-08-14] MEDS ORDERED: LOSARTAN POTASSIUM 50 MG TABLET ONE (02:51)
[2022-08-14] MEDS ORDERED: cloNIDine HCL 0.1 MG TAB ONE (04:01)
--- NOTE | 2022-08-14 04:28 | ER ---
Nurse's Notes [facility] Name: Chu Desouza Age: 71 yrs Sex: Male : 1950 Arrival Date: 08/14/2022 Time: 00:55 Bed 3 Private MD: Diagnosis: Neck pain Presentation: 08/14 01:21 Chief complaint: Patient states: I am not sure if i injured myself or not but on kd3 Monday I started to have neck pain that radiates into my shoulders. I have been to urgent care and they sent me home with Flexeril but it still hurts. I have had a surgery years ago near my C3/ C4. Coronavirus screen: Vaccine status: Patient reports receiving the 2nd dose of the covid vaccine. Ebola Screen: No symptoms or risks identified at this time. Initial Sepsis Screen: Does the patient meet any 2 criteria? No. Patient's initial sepsis screen is negative. Does the patient have a suspected source of infection? No. Patient's initial sepsis screen is negative. Risk Assessment: Do you want to hurt yourself or someone else? Patient reports no desire to harm self or others. Onset of symptoms was August 14, 2022. 01:21 Method Of Arrival: Ambulatory kd3 01:21 Acuity: YG 3 kd3 Triage Assessment: 01:23 General: Appears uncomfortable, Behavior is calm, cooperative. Pain: Complains of pain kd3 in neck Pain radiates to right arm, anterior aspect of left shoulder and posterior aspect of left shoulder. Neuro: Level of Consciousness is awake, alert, obeys commands, Oriented to person, place, time, situation. Historical: - Allergies: 01:23 PENICILLINS; kd3 - Home Meds: 04:31 losartan 50 mg oral tablet [Active]; vc1 - PMHx: 01:23 Hypertensive disorder; kd3 - PSHx: 01:23 Back SX, Neck SX; kd3 - Immunization history:: Adult Immunizations up to date. - Social history:: Smoking status: Patient denies any tobacco usage or history of. Screenin:15 Abuse screen: Denies threats or abuse. Nutritional screening: No deficits noted. vc1 Tuberculosis screening: No symptoms or risk factors identified. 01:15 [facility] ED Fall Risk Assessment (Adult) History of falling in the last 3 months, vc1 including since admission No falls in past 3 months (0 pts) Confusion or Disorientation No (0 pts) Intoxicated or Sedated No (0 pts) Impaired Gait No (0 pts) Mobility Assist Device Used No (0 pt) Altered Elimination No (0 pt) Score/Fall Risk Level 0 - 2 = Low Risk Oriented to surroundings, Maintained a safe environment, Educated pt \T\ family on fall prevention, incl call for assistance when getting out of bed. Assessment: 03:06 Reassessment: No changes from previously documented assessment. Patient and/or family vc1 updated on plan of care and expected duration. Pain level reassessed. Patient is alert, oriented x 3, equal unlabored respirations, skin warm/dry/pink. Patient states feeling better. Patient states symptoms have improved. 04:06 Reassessment: No changes from previously documented assessment. Patient and/or family vc1 updated on plan of care and expected duration. Pain level reassessed. Patient is alert, oriented x 3, equal unlabored respirations, skin warm/dry/pink. Patient states feeling better. Patient states symptoms have improved. 04:32 Reassessment: Patient and/or family updated on plan of care and expected duration. Pain vc1 level reassessed. Patient is alert, oriented x 3, equal unlabored respirations, skin warm/dry/pink. Patient states feeling better. Patient states symptoms have improved. Neuro: Level of Consciousness is awake, alert, obeys commands, Oriented to person, place, time, situation, Appropriate for age. Vital Signs: 01:21 BP 159 / 117; Pulse 92; Resp 16; Temp 98.1(TE); Pulse Ox 100% on R/A; Weight 104.33 kg; kd3 Height 6 ft. 0 in. ; 03:06 BP 167 / 131; Pulse 82; Resp 16; Pulse Ox 97% on R/A; vc1 03:38 BP 184 / 10; Pulse 80; vc1 03:38 BP 184 / 130; Pulse 80; vc1 04:06 BP 168 / 124; Pulse 82; Resp 16; Pulse Ox 99% ; vc1 04:34 BP 147 / 112; Pulse 82; Pulse Ox 97% ; vc1 04:36 BP 147 / 112; Pulse 87; Resp 16; Pulse Ox 97% ; vc1 01:21 Body Mass Index 31.19 (104.33 kg, 182.88 cm) kd3 ED Course: 00:59 Patient arrived in ED. ja2 01:20 Ernesto Agrawal MD is Attending Physician. kdr 01:23 Triage completed. kd3 01:23 Arm band placed on right wrist. kd3 01:23 Patient has correct armband on for positive identification. Bed in low position. Call vc1 light in reach. Pulse ox on. NIBP on. 02:12 CT C Spine In Process Unspecified. EDMS 03:06 Shirley Mckeon RN is Primary Nurse. vc1 04:48 No provider procedures requiring assistance completed. IV discontinued, intact, vc1 bleeding controlled, No redness/swelling at site. Pressure dressing applied. Administered Medications: 02:09 Drug: [place] PO 10 mg-325 mg 1 tabs Route: PO; vc1 02:30 Follow up: Response: No adverse reaction; Marked relief of symptoms; Pain is decreased vc1 02:10 Drug: Methocarbamol IVPB 1 grams Route: IVPB; Infused Over: 1 hrs; Site: right vc1 antecubital; 03:10 Follow up: IV Status: Completed infusion; IV Intake: 100ml vc1 02:10 Drug: Ketorolac IVP 15 mg Route: IVP; Site: right antecubital; vc1 02:30 Follow up: Response: No adverse reaction; Marked relief of symptoms; Pain is decreased vc1 02:10 Drug: MethylPrednisoLONE IVP 125 mg Route: IVP; Site: right antecubital; vc1 02:30 Follow up: Response: No adverse reaction; Marked relief of symptoms; Pain is decreased vc1 02:45 Drug: Losartan PO 50 mg Route: PO; vc1 03:38 Follow up: BP 184 / 10; Pulse 80 bpm; Response: No adverse reaction; No change in vc1 condition; Blood pressure is elevated 03:55 Drug: cloNIDine PO 0.2 mg Route: PO; vc1 04:34 Follow up: BP 147 / 112; Pulse 82 bpm; Pulse Ox 97% ; Response: No adverse reaction; vc1 Marked relief of symptoms; Blood pressure is lowered Medication: 03:07 VIS not applicable for this client. vc1 Intake: 03:10 IV: 100ml; Total: 100ml. vc1 Outcome: 04:27 Discharge ordered by . kdr 04:48 Discharged to home ambulatory. vc1 04:48 Condition: good 04:48 Discharge instructions given to patient, Instructed on discharge instructions, follow up and referral plans. medication usage, Demonstrated understanding of instructions, follow-up care, medications, Prescriptions given X 3. 04:49 Patient left the ED. vc1 Signatures: Dispatcher [employer] EDMS Ernesto Agrawal MD MD kdr Alexander, Jessica ja2 Doucette, Kyli, RN RN kd3 Shirley Mckeon RN RN vc1 Corrections: (The following items were deleted from the chart) 03:08 03:07 Losartan PO 50 mg PO vc1 vc1 04:31 01:23 Home Meds: losartan 10 mg Oral; kd3 vc1
--- NOTE | 2022-08-14 04:28 | EDPHYS ---
Physician Documentation [facility] Name: Chu Desouza Age: 71 yrs Sex: Male : 1950 Arrival Date: 08/14/2022 Time: 00:55 Bed 3 Private MD: ED Physician Ernesto Agrawal HPI: 08/15 02:45 This 71 yrs old Black Male presents to ER via Ambulatory with complaints of Neck and kdr Upper Back Pain. 02:46 Patient is concerned that since Monday they have had increased neck pain that kdr radiates into the shoulders. They are unsure if they have injured himself recently. They presented to urgent care recently and were given Flexeril but is still having pain. Patient has had prior surgery a year ago on C3 and 4.. Onset: The symptoms/episode began/occurred gradually, 3 day(s) ago. Severity of symptoms: At their worst the symptoms were mild moderate just prior to arrival, in the emergency department the symptoms are unchanged. The patient has experienced similar episodes in the past, chronically. The patient has not recently seen a physician. Historical: - Allergies: 08/14 01:23 PENICILLINS; kd3 - Home Meds: 04:31 losartan 50 mg oral tablet [Active]; vc1 - PMHx: 01:23 Hypertensive disorder; kd3 - PSHx: 01:23 Back SX, Neck SX; kd3 - Immunization history:: Adult Immunizations up to date. - Social history:: Smoking status: Patient denies any tobacco usage or history of. ROS: 08/15 02:46 Constitutional: Negative for fever, chills, and weight loss, Eyes: Negative for injury, kdr pain, redness, and discharge, ENT: Negative for injury, pain, and discharge, Cardiovascular: Negative for chest pain, palpitations, and edema, Respiratory: Negative for shortness of breath, cough, wheezing, and pleuritic chest pain, Abdomen/GI: Negative for abdominal pain, nausea, vomiting, diarrhea, and constipation, Back: Negative for injury and pain. Neck: Positive for injury or acute deformity, pain with movement, stiffness, Negative for tenderness, bony tenderness. Exam: 02:46 Constitutional: This is a well developed, well nourished patient who is awake, alert, kdr and in no acute distress. Head/Face: Normocephalic, atraumatic. Eyes: Pupils equal round and reactive to light, extra-ocular motions intact. Lids and lashes normal. Conjunctiva and sclera are non-icteric and not injected. Cornea within normal limits. Periorbital areas with no swelling, redness, or edema. Neck: Trachea midline, no thyromegaly or masses palpated, and no cervical lymphadenopathy. Supple, full range of motion without nuchal rigidity, or vertebral point tenderness. No Meningismus. Chest/axilla: Normal chest wall appearance and motion. Nontender with no deformity. No lesions are appreciated. Cardiovascular: Regular rate and rhythm with a normal S1 and S2. No gallops, murmurs, or rubs. Normal PMI, no JVD. No pulse deficits. Respiratory: Lungs have equal breath sounds bilaterally, clear to auscultation and percussion. No rales, rhonchi or wheezes noted. No increased work of breathing, no retractions or nasal flaring. Abdomen/GI: Soft, non-tender, with normal bowel sounds. No distension or tympany. No guarding or rebound. No evidence of tenderness throughout. Back: No spinal tenderness. No costovertebral tenderness. Full range of motion. Skin: Warm, dry with normal turgor. Normal color with no rashes, no lesions, and no evidence of cellulitis. MS/ Extremity: Pulses equal, no cyanosis. Neurovascular intact. Full, normal range of motion. Neuro: Awake and alert, GCS 15, oriented to person, place, time, and situation. Cranial nerves II-XII grossly intact. Motor strength 5/5 in all extremities. Sensory grossly intact. Cerebellar exam normal. Normal gait. Psych: Awake, alert, with orientation to person, place and time. Behavior, mood, and affect are within normal limits. Vital Signs: 08/14 01:21 BP 159 / 117; Pulse 92; Resp 16; Temp 98.1(TE); Pulse Ox 100% on R/A; Weight 104.33 kg; kd3 Height 6 ft. 0 in. ; 03:06 BP 167 / 131; Pulse 82; Resp 16; Pulse Ox 97% on R/A; vc1 03:38 BP 184 / 10; Pulse 80; vc1 03:38 BP 184 / 130; Pulse 80; vc1 04:06 BP 168 / 124; Pulse 82; Resp 16; Pulse Ox 99% ; vc1 04:34 BP 147 / 112; Pulse 82; Pulse Ox 97% ; vc1 04:36 BP 147 / 112; Pulse 87; Resp 16; Pulse Ox 97% ; vc1 01:21 Body Mass Index 31.19 (104.33 kg, 182.88 cm) kd3 MDM: 04:27 Patient medically screened. kdr 08/15 02:46 Data reviewed: vital signs, nurses notes, lab test result(s), radiologic studies. kdr 02:46 ED course: Patient was stable in the ED and without further need for intervention. The kdr patient was otherwise stable and discharged in good condition. The patient was. ED course: happy with the care provided the plan for discharge and follow-up. 08/14 01:34 Order name: CT C Spine kdr Administered Medications: 08/14 02:09 Drug: [place] PO 10 mg-325 mg 1 tabs Route: PO; vc1 02:30 Follow up: Response: No adverse reaction; Marked relief of symptoms; Pain is decreased vc1 02:10 Drug: Methocarbamol IVPB 1 grams Route: IVPB; Infused Over: 1 hrs; Site: right vc1 antecubital; 03:10 Follow up: IV Status: Completed infusion; IV Intake: 100ml vc1 02:10 Drug: Ketorolac IVP 15 mg Route: IVP; Site: right antecubital; vc1 02:30 Follow up: Response: No adverse reaction; Marked relief of symptoms; Pain is decreased vc1 02:10 Drug: MethylPrednisoLONE IVP 125 mg Route: IVP; Site: right antecubital; vc1 02:30 Follow up: Response: No adverse reaction; Marked relief of symptoms; Pain is decreased vc1 02:45 Drug: Losartan PO 50 mg Route: PO; vc1 03:38 Follow up: BP 184 / 10; Pulse 80 bpm; Response: No adverse reaction; No change in vc1 condition; Blood pressure is elevated 03:55 Drug: cloNIDine PO 0.2 mg Route: PO; vc1 04:34 Follow up: BP 147 / 112; Pulse 82 bpm; Pulse Ox 97% ; Response: No adverse reaction; vc1 Marked relief of symptoms; Blood pressure is lowered Disposition Summary: 08/14/22 04:27 Discharge Ordered Location: Home kdr Problem: new kdr Symptoms: have improved kdr Condition: Stable kdr Diagnosis - Neck pain kdr Followup: kdr - With: Private Physician - When: 2 - 3 days - Reason: If symptoms return, Further diagnostic work-up, Recheck today's complaints, Continuance of care, Re-evaluation by your physician Discharge Instructions: - Discharge Summary Sheet kdr - Acute Back Pain, Adult kdr Forms: - Medication Reconciliation Form kdr - Thank You Letter kdr - Prescription Opioid Use kdr Prescriptions: - Ibuprofen 600 mg Oral Tablet - take 1 tablet by ORAL route every 6 hours As needed take with food; 30 tablet; kdr Refills: 0, Product Selection Permitted - Medrol (Davian) 4 mg Oral Tablets, Dose Pack - take 1 tablet by ORAL route as directed - follow package instructions; 1 kdr packet; Refills: 0, Product Selection Permitted - methocarbamol 750 mg Oral Tablet - take 2 tablets by ORAL route 3 times per day As needed; 30 tablet; Refills: 0, kdr Product Selection Permitted Signatures: Dispatcher [employer] EDMS Ernesto Agrawal MD MD kdr Doucette, Kyli RN RN kd3 Shirley Mckeon RN RN vc1 Corrections: (The following items were deleted from the chart) 04:31 01:23 Home Meds: losartan 10 mg Oral; kd3 vc1
[2022-08-14 04:54] VITALS: TEMP 98.1
[2022-08-14 04:59] VITALS: BP 147/112; O2SAT 97
--- NOTE | 2022-08-15 15:14 | RAD REPORT ---
EXAM DESCRIPTION: CT - C Spine Wo Con - 08/14/2022 5:10 am CLINICAL HISTORY: PAIN TECHNIQUE: Axial computed tomography images of the cervical spine without intravenous contrast. Sa gittal and coronal reformatted images were created and reviewed. This CT exam was performed using o ne or more of the following dose reduction techniques: automated exposure control, adjustment of th e mA and/or kV according to patient size, and/or use of iterative reconstruction technique. COMPARISON: No relevant prior studies available. FINDINGS: Vertebrae: Grade 1 retrolisthesis of C3 on C4. No acute fracture or subluxation. Discs/spinal canal/neural foramina: Prior anterior fusion and discectomy at C4-C6. Multilevel deg enerative changes with most pronounced disc degeneration, endplate changes and concentric disc osteop hytes at C3-C4 and C7-T1. Mild to moderate multilevel facet arthropathy. Fusion fusion at C6-C7. No critical canal stenosis. Severe foraminal narrowing at C3-C4 and C4-C5. Soft tissues: Unremarkable. IMPRESSION: No acute injury. Electronically signed by: Jennifer Richard MD 08/14/2022 2:35 AM CDT Due to temporary technical issues with the PACS/Fluency reporting system, reports are being signed by the in house radiologist without review as a courtesy to ensure prompt reporting. The interpreting r adiologist is fully responsible for the content of the report.
== END 2022-08-14 04:49 | disposition home or self-care (01) ==
LOC: ER 00:55
DX: M54.2 Cervicalgia (principal); I10 Essential (primary) hypertension; Z88.0 Allergy status to penicillin
CPT/HCPCS: 96365; 72125; 96375; 99284; J2930; J2800

== ENCOUNTER 2022-10-18 03:28 | Emergency (ER) | payer OTHER ==
--- OUTSIDE RECORDS SUMMARY | 2022-10-18 03:31 | XMS REPORT | Continuity of Care Document ---
:1950 Author Organization [facility] t Address [address] [place] [address] Care Team Providers Name Role Phone Provider MD, Not In System Primary Care Physician Unavailabl e Karlene Attending Clinician Unavailable Jayy Hogan Attending Clinician [phone] CUBA WESTON Attending Clinician Unavailable Karlene Admitting Clinician Unavailable Payers Payer Name Policy Type Policy Number Effective Date Expiration Date [facility] [id number] 2002 00:00:00 Problems Condition Condition Condition Status Onset Resolution Last Treating Co mments Source Name Details Category Date Date Treatment Clinician Date Pain in Pain in Problem Active [facility] pelvis Pelvis 908 Orthope 00:00: dic 00 Sports Medicin e Osteoarthr Osteoarthr Problem Active A zalea [facility] of [facility] of 08 Orthope right hip Right Hip 00:00: dic joint Joint 00 Sports Medicin e Osteoarthr Osteoarthr Problem Active A zalea itis of itis of 08 Orthope left hip Left Hip 00:00: dic joint Joint 00 Sports Medicin e Encounter Encounter Disease Active 2020-03 Met rosalind for for 03-16 completion completion 00:00: Ho spita of form of form 00 l with with patient patient Acute Acute Disease Active [facility] right-side right-side 11-12 d low back d low back 00:00: Ho spita pain pain 00 l without without sciatica sciatica Follow-up Follow-up Disease Active [facility] examinatio examinatio 1-09 st n n 00:00: [...] Date Stop Date Source Natural brother Cancer [facility] Natural father Cancer [facility] Natural mother Cancer [facility] Social History Social Habit Start Date Stop Date Quantity Comments Source Gender identity [facility] of tobacco [facility] History of Social 2022-06-14 2022-06-[address] function 00:00:00 00:00:00 Hospital Alcohol intake 2021-01-14 2021-01-14 [facility] 00:[facility]:00 alcohol (finding) Hospita l Cigarettes smoked 2018-12-19 2018-12-[address] current (pack per 00:00:00 00:00:00 Hospita l day) - Reported Cigarette 2018-12-19 2018-12-19 [facility] pack-years 00:00:00 00:00:00 Hospital Alcohol Comment 2018-12-19 2018-12-19 ocassionally 1-2 [facility] 00:00:00 00:00:00 drinks Hospital Tobacco use and 2018-12-19 2018-12-19 Smokeless tobacco [facility] exposure 00:00:00 00:00:00 non-user Hospital Sex Assigned At [birth year] [facility] 00:[facility] 00:[facility]:00 Hospital Smoking Status Start Date Stop Date Source Former Smoker [facility] Medications Ordered Filled Start Stop Current Ordering Indication Dosage Frequency Signature Comments Components Source Medication Medication Date Date Medication? Clinician (SIG) Name Name [facility] Yes 10mg QD Take 10 mg [facility] mg tablet 2-[address] [facility]00[facility] Yes 10mg QD Take 10 mg [facility] mg tablet 2-[address] 00:00[facility] Yes 10mg QD Take 10 mg [facility] mg tablet 2-[address] 00:00: nightly. [facility] l azithromyci azithromyci No azithromyc [facility] n [...] Date / Time Performed Performing Clinician Catherine GOODMAN PELVIS 03/142021-11-18 00:00:00 [facility] VIEWS Sports Medicine Back Surgery [facility] Hand Surgery [facility] Knee [facility] Neck Surgery [facility] Plan of Care Planned Activity Planned Date Details Comments Source Future Scheduled 2022-10-18 [facility] Test 03:31:07 malignant neoplasm of colon (procedure) [code = 959482775] Future Scheduled 2022-10-18 [facility] Test 03:31:07 malignant neoplasm of colon (procedure) [code = 215300928] Future Scheduled 2022-10-18 [facility] Test 03:31:07 malignant neoplasm of colon (procedure) [code = 082700078] Future Scheduled 2022-10-18 Hepatitis C screening [facility] Test 03:31:07 (procedure) [code = 716410230] Future Scheduled 2022-10-18 [facility] Test 03:31:07 malignant neoplasm of colon (procedure) [code = 435861488] Future Scheduled 2022-10-18 [facility] Test 03:31:07 malignant neoplasm of colon (procedure) [code = 494284669] Future Scheduled 2022-10-18 SHINGLES VACCINES (1 Met [facility] Test 03:31:07 of 2) [code = SHINGLES VACCINES (1 of 2)] Future Scheduled 2022-10-18 65+ PNEUMOCOCCAL [facility] Test 03:31:07 VACCINE (1 - PCV) [code = 65+ PNEUMOCOCCAL VACCINE (1 - PCV)] Future Scheduled 2022-10-18 COVID-19 VACCINE (2 - [facility] Test 03:31:07 Moderna series) [code = COVID-19 VACCINE (2 - Moderna series)] Future Scheduled 2022-10-18 INFLUENZA VACCINE [facility] 03:31:07 [code = INFLUENZA VACCINE] Future Scheduled 2022-06-15 [facility] Test 16:40:51 (procedure) [code = 192033244] Future Scheduled 2022-06-15 COLONOSCOPY SCREENING [facility] Test 16:40:51 [code = COLONOSCOPY SCREENING] Future Scheduled 2022-06-15 SHINGLES VACCINES (1 Met [facility] Test 16:40:51 of 2) [code = SHINGLES VACCINES (1 of 2)] Future Scheduled 2022-06-15 65+ P[facility]UMOCOCCAL [facility] Test 16:40:51 VACCINE (1 - PCV) [code = 65+ PNEUMOCOCCAL VACCINE (1 - PCV)] Future Scheduled 2022-06-15 COVID-19 VACCINE (2 - [facility] Test 16:40:51 Moderna series) [code = COVID-19 VACCINE (2 - Moderna series)] Future Scheduled 2022-06-15 IN[facility]UENZA [facility]ACCINE [facility] Test 16:40:51 [code = INFLUENZA VACCINE] Future Scheduled 2022-02-23 [facility] C [facility] Test 14:24:57 (procedure) [code = 041177198] Future Scheduled 2022-02-23 COLONOSCOPY SCREENING [facility] Test 14:24:57 [code = COLONOSCOPY SCREENING] Future Scheduled 2022-02-23 SHINGLES VACCINES (1 Met [facility] Test 14:24:57 of 2) [code = SHINGLES VACCINES (1 of 2)] Future Scheduled 2022-02-23 65+ P[facility]UMOCOCCAL [facility] Test 14:24:57 VACCINE (1 - PCV) [code = 65+ PNEUMOCOCCAL VACCINE (1 - PCV)] Future Scheduled 2022-02-23 COVID-19 VACCINE (2 - [facility] Test 14:24:57 Moderna series) [code = COVID-19 VACCINE (2 - Moderna series)] Future Scheduled 2022-02-23 INFLUENZA VACCINE [facility] Test 14:24:57 [code = INFLUENZA VACCINE] Encounters Start End Encounter Admission Attending Care Care Encounter Source Date/Time Date/Time Type Type Clinicians Facility Department ID 2021-11-18 2021-11-18 Outpatient FOG_Burke_R AOSM AOSM [id number] [facility] 00:00:00 00:00:00 Ayaka [id number] Ortho pe dic Sports Medicin e 2021-11-18 2021-11-18 Jayy [place] - Ortho 00:00:00 00:00:00 MD [place]: Nilda Cross [address] FOG_Ofc dic [facility] [address], [place] [address] , Ph. [phone] 2021-11-18 2021-11-18 Outpatient DEANA Hogan [id number] 00:00:00 00:00:00 Jayy Lutz [id number] 2021-11-16 2021-11-16 Outpatient FOG_Burke_R AOSM AOSM [id number] [facility] 00:00:00 00:00:00 Ayaka [id number] Ortho pe dic Sports Medicin e 2021-11-10 2021-11-10 Outpatient FOG_Burke_R AOSM AOSM [id number] [facility] 00:00:00 00:00:00 Ayaka [id number] Ortho pe dic Sports Medicin e 2021-11-03 2021-11-03 Outpatient FOG_Burke_R AOSM AOSM [id number] [facility] 00:00:00 00:00:00 Ayaka [id number] Ortho pe dic Sports Medicin e 2021-01-14 2021-01-14 Outpatient [facility] [id number] [address] [place] 00:00:00 00:00:00 CUBA [address] 2021-01-14 2021-01-14 Outpatient [facility] [id number] [place] 00:00:00 00:00:00 CUBA [address] 2020-12-28 2020-12-28 Outpatient [facility] [id number] [place] 00:00:00 00:00:00 CUBA [address] 2020-11-12 2020-11-12 Outpatient [facility] [id number] [place] 00:00:00 00:00:00 CUBA [address] 2020-11-12 2020-11-12 Outpatient [facility] [id number] [address] [place] 00:00:00 00:00:00 CUBA [address] 2020-03-23 2020-03-23 Outpatient [facility] [id number] [place] 00:00:00 00:00:00 CUBA [address] 2020-03-23 2020-03-23 [facility] [id number] [id number] [place] 00:00:00 00:00:00 CUBA [address] Results This patient has no known results.
[2022-10-18 04:20] LABS: Absolute Lymphocytes (CBC) 1.8 K/uL (0.7-4.9); Hematocrit 37.1 % (39.6-49.0); Lymphocytes % 38.4 % (15.3-44.8); MCV 74.4 fL (80-100); MPV 6.7 fL (7.6-11.3); Platelets 238 thou/uL (152-406); RBC Red Blood Cell Count 4.99 M/uL (4.33-5.43)
[2022-10-18 04:21] LABS: Protime INR 1.01
[2022-10-18 04:39] LABS: Albumin 3.3 g/dL (3.4-5.0); Bilirubin Direct 0.1 mg/dL (0-0.2); Bilirubin Indirect, Calculated 0.4 mg/dL (0.2-0.8); Bilirubin Total 0.5 mg/dL (0.2-1.0); Potassium 3.5 mEq/L (3.5-5.1); Protein, Total 6.5 g/dL (6.4-8.2)
--- NOTE | 2022-10-18 06:34 | ER ---
Nurse's Notes [facility] Name: Chu Desouza Age: 72 yrs Sex: Male : 1950 Arrival Date: 10/18/2022 Time: 03:28 Bed 7 Private MD: Diagnosis: Essential (primary) hypertension Presentation: 10/18 03:34 Chief complaint: EMS states: PT HAD COMPLAINED OF CP AT 2200 TONIGHT AT WORK, NO rv APPETITE, AND STARTED NOT FEELING WELL AT 0200. COMPLAINED OF SOB WELL. HX OF HTN, LOSARTAN RECENTLY ADJUSTED THE DOSE BY PCP. INITIAL BP AT SCENE IS 200 SYSTOLIC. DENIES CP UPON ARRIVAL. Coronavirus screen: At this time, the client does not indicate any symptoms associated with coronavirus-19. Ebola Screen: No symptoms or risks identified at this time. Initial Sepsis Screen: Does the patient meet any 2 criteria? No. Patient's initial sepsis screen is negative. Does the patient have a suspected source of infection? No. Patient's initial sepsis screen is negative. Risk Assessment: Do you want to hurt yourself or someone else? Patient reports no desire to harm self or others. Onset of symptoms was October 17, 2022. 03:34 Method Of Arrival: EMS: BASF rv 03:34 Acuity: YG 3 rv Triage Assessment: 03:38 General: Appears comfortable, Behavior is calm, cooperative. Pain: Denies pain. Neuro: rv Level of Consciousness is awake, alert, obeys commands, Oriented to person, place, time, situation. Cardiovascular: Capillary refill < 3 seconds Patient's skin is warm and dry. Respiratory: Reports shortness of breath on exertion Airway is patent Respiratory effort is even, unlabored. GI: No signs and/or symptoms were reported involving the gastrointestinal system. : No signs and/or symptoms were reported regarding the genitourinary system. Derm: No signs and/or symptoms reported regarding the dermatologic system. Historical: - Allergies: 03:38 PENICILLINS; rv - Home Meds: 03:38 losartan 100 mg oral tablet [Active]; rv - PMHx: 03:38 Hypertensive disorder; rv - PSHx: 03:38 Back SX, Neck SX; rv - Immunization history:: Adult Immunizations up to date. - Social history:: Smoking status: Patient denies any tobacco usage or history of. - Family history:: not pertinent. Screenin:39 [facility] ED Fall Risk Assessment (Adult) History of falling in the last 3 months, rv including since admission No falls in past 3 months (0 pts) Confusion or Disorientation No (0 pts) Intoxicated or Sedated No (0 pts) Impaired Gait No (0 pts) Mobility Assist Device Used No (0 pt) Altered Elimination No (0 pt) Score/Fall Risk Level 0 - 2 = Low Risk Oriented to surroundings, Maintained a safe environment, Educated pt \T\ family on fall prevention, incl call for assistance when getting out of bed, Assessed \T\ reinforced patient's understanding of fall precautions, Provided non-skid footwear, Hourly rounding (assess needs \T\ fall precautionary measures) done, Used ambulatory aids as needed (educated on \T\ assisted with), Used gait belt as appropriate. Abuse screen: Denies threats or abuse. Denies injuries from another. Nutritional screening: No deficits noted. Tuberculosis screening: No symptoms or risk factors identified. Assessment: 04:37 Reassessment: No changes from previously documented assessment. Patient and/or family vc1 updated on plan of care and expected duration. Pain level reassessed. Patient is alert, oriented x 3, equal unlabored respirations, skin warm/dry/pink. 05:45 Reassessment: No changes from previously documented assessment. Patient and/or family vc1 updated on plan of care and expected duration. Pain level reassessed. Patient is alert, oriented x 3, equal unlabored respirations, skin warm/dry/pink. 06:29 Reassessment: No changes from previously documented assessment. Patient and/or family vc1 updated on plan of care and expected duration. Pain level reassessed. Patient is alert, oriented x 3, equal unlabored respirations, skin warm/dry/pink. Vital Signs: 03:34 BP 144 / 102; Pulse 97; Resp 18; Temp 98.1; Pulse Ox 100% on R/A; Weight 90.5 kg; rv Height 6 ft. 0 in. ; Pain 0/10; 04:03 BP 143 / 101; Pulse 103; Resp 20; Pulse Ox 100% on R/A; rv 04:36 BP 152 / 98; Pulse 93; Resp 15; Pulse Ox 100% ; vc1 05:45 BP 150 / 95; Pulse 86; Resp 17; Pulse Ox 100% ; vc1 06:29 BP 143 / 110; Pulse 86; Resp 17; Pulse Ox 100% ; vc1 03:34 Body Mass Index 27.06 (90.50 kg, 182.88 cm) rv 03:34 Pain Scale: Adult rv Meme Coma Score: 06:38 Eye Response: spontaneous(4). Motor Response: obeys commands(6). Verbal Response: rv oriented(5). Total: 15. ED Course: 03:34 Patient arrived in ED. rv 03:37 Triage completed. rv 03:38 Mark Conner, RN is Primary Nurse. rv 03:38 Arm band placed on right wrist. rv 03:39 Patient has correct armband on for positive identification. Bed in low position. Call rv light in reach. Side rails up X 1. Client placed on continuous cardiac and pulse oximetry monitoring. NIBP monitoring applied. nurse monitoring on. 03:39 Maintain EMS IV. Dressing intact. Good blood return noted. Site clean \T\ dry. Gauge \T\ rv site: 20 LFA. Flushed. 03:40 Provided Education on: CHEST PAIN. rv 03:54 Shady Mazariegos MD is Attending Physician. sp4 04:07 XRAY Chest (1 view) In Process Unspecified. EDMS 06:37 No provider procedures requiring assistance completed. IV discontinued, intact, rv bleeding controlled, No redness/swelling at site. Pressure dressing applied. Administered Medications: No medications were administered Medication: 06:37 VIS not applicable for this client. vc1 06:37 VIS not applicable for this client. rv Outcome: 06:33 Discharge ordered by . sp4 06:37 Discharged to home ambulatory. rv 06:37 Condition: good 06:37 Discharge instructions given to patient, Instructed on discharge instructions, follow up and referral plans. Demonstrated understanding of instructions, follow-up care. 06:38 Patient left the ED. rv Signatures: Dispatcher [employer] EDID Mark Conner RN RN rv Shirley Mckeon RN RN vc1 Shady Mazariegos MD MD sp4
--- NOTE | 2022-10-18 06:34 | EDPHYS ---
Physician Documentation [facility] Name: Chu Desouza Age: 72 yrs Sex: Male : 1950 Arrival Date: 10/18/2022 Time: 03:28 Bed 7 Private MD: ED Physician Shady Mazariegos HPI: 10/18 03:54 This 72 yrs old Black Male presents to ER via EMS with complaints of elevated blood sp4 pressure. 03:54 . sp4 06:22 Patient presents with [facility] [employer] plant with EMS for concern of elevated blood sp4 pressure. Patient reports his blood pressure was 200/120. Recently had increased in his losartan up to 100 mg losartan daily . Patient was doing his regular blood pressure check when he noticed blood pressure was high. Patient denied any symptoms.. Historical: - Allergies: 03:38 PENICILLINS; rv - Home Meds: 03:38 losartan 100 mg oral tablet [Active]; rv - PMHx: 03:38 Hypertensive disorder; rv - PSHx: 03:38 Back SX, Neck SX; rv - Immunization history:: Adult Immunizations up to date. - Social history:: Smoking status: Patient denies any tobacco usage or history of. - Family history:: not pertinent. ROS: 06:22 Constitutional: Negative for fever, chills, and weight loss. sp4 06:22 All other systems are negative. Exam: 06:22 Constitutional: This is a well developed, well nourished patient who is awake, alert, sp4 and in no acute distress. Head/Face: Normocephalic, atraumatic. Eyes: Pupils equal round and reactive to light, extra-ocular motions intact. Lids and lashes normal. Conjunctiva and sclera are not injected. Cornea within normal limits. Periorbital areas with no swelling, redness, or edema. ENT: Nares patent. No nasal discharge, no septal abnormalities noted. Tympanic membranes are normal and external auditory canals are clear. Oropharynx with no redness, swelling, or masses, exudates, or evidence of obstruction, uvula midline. Mucous membranes moist. Neck: Trachea midline, no thyromegaly or masses palpated, and no cervical lymphadenopathy. Supple, full range of motion without nuchal rigidity, or vertebral point tenderness. Chest/axilla: Normal chest wall appearance and motion. Nontender with no deformity. No lesions are appreciated. Cardiovascular: Regular rate and rhythm with a normal S1 and S2. No gallops, murmurs, or rubs. Normal PMI, no JVD. No pulse deficits. Respiratory: Lungs have equal breath sounds bilaterally, clear to auscultation and percussion. No rales, rhonchi or wheezes noted. No increased work of breathing, no retractions or nasal flaring. Abdomen/GI: Soft, non-tender, with normal bowel sounds. No distension or tympany. No guarding or rebound. No evidence of tenderness throughout. Back: No spinal tenderness. No costovertebral tenderness. Skin: Warm, dry with normal turgor. Normal color with no rashes, no lesions, and no evidence of cellulitis. MS/ Extremity: Pulses equal, no cyanosis. Neurovascular intact. Full, normal range of motion. Neuro: Awake and alert, GCS 15, oriented to person, place, time, and situation. Cranial nerves II-XII grossly intact. Motor strength 5/5 in all extremities. Sensory grossly intact. Psych: Awake, alert, with orientation to person, place and time. Behavior, mood, and affect are within normal limits 06:26 ECG was reviewed by the Attending Physician. EKG time 0 346, there is normal sinus sp4 rhythm, left anterior fascicular block, sinus rhythm at rate of 88, EKG time 03:46 Vital Signs: 03:34 BP 144 / 102; Pulse 97; Resp 18; Temp 98.1; Pulse Ox 100% on R/A; Weight 90.5 kg; rv Height 6 ft. 0 in. ; Pain 0/10; 04:03 BP 143 / 101; Pulse 103; Resp 20; Pulse Ox 100% on R/A; rv 04:36 BP 152 / 98; Pulse 93; Resp 15; Pulse Ox 100% ; vc1 05:45 BP 150 / 95; Pulse 86; Resp 17; Pulse Ox 100% ; vc1 06:29 BP 143 / 110; Pulse 86; Resp 17; Pulse Ox 100% ; vc1 03:34 Body Mass Index 27.06 (90.50 kg, 182.88 cm) rv 03:34 Pain Scale: Adult rv Meme Coma Score: 06:38 Eye Response: spontaneous(4). Motor Response: obeys commands(6). Verbal Response: rv oriented(5). Total: 15. MDM: 03:55 Patient medically screened. sp4 06:26 ED course: TECHNIQUE: Single view of the chest. COMPARISON: No relevant prior studies sp4 available. FINDINGS: Lungs: No pulmonary vascular congestion or consolidation. Pleural space: Unremarkable. No pneumothorax. Heart: Unremarkable. No cardiomegaly. Mediastinum: Unremarkable. Bones/joints: No acute fracture visualized. Upper abdomen: Elevated right hemidiaphragm. No free air in the visualized upper abdomen. IMPRESSION: No acute cardiopulmonary process identified. 06:26 Differential Diagnosis altered mental status, sepsis, flu. Data reviewed: vital signs, sp4 nurses notes, EMS record, old medical records, lab test result(s), EKG, radiologic studies, plain films. Consideration of Admission/Observation Escalation of care including admission/observation considered. ED course: Chest x-ray reveals no sign of cardiac enlargement, no signs of CHF, electrolyte panel is normal, CBC is basically normal, LFTs basically normal troponin negative, no sign of blood pressure causing endorgan damage. Blood pressure did improve spontaneously here in the ER. Will be advised to continue his losartan at the current dose and see his primary care physician for blood pressure medication adjustment in the office.. . 10/18 03:55 Order name: Basic Metabolic Panel; Complete Time: 06:22 sp4 10/18 03:55 Order name: CBC with Diff; Complete Time: 06:22 sp4 10/18 03:55 Order name: LFT's; Complete Time: 06:22 sp4 10/18 03:55 Order name: Magnesium; Complete Time: 06:22 sp4 10/18 03:55 Order name: NT PRO-BNP; Complete Time: 06:22 sp4 10/18 03:55 Order name: PT-INR; Complete Time: 06:22 sp4 10/18 03:55 Order name: Troponin HS; Complete Time: 06:22 sp4 10/18 03:55 Order name: XRAY Chest (1 view) sp4 10/18 03:55 Order name: EKG; Complete Time: 03:56 sp4 10/18 03:55 Order name: Cardiac monitoring; Complete Time: 04:03 sp4 10/18 03:55 Order name: EKG - Nurse/Tech; Complete Time: 04:03 sp4 10/18 03:55 Order name: IV Saline Lock; Complete Time: 04:03 sp4 10/18 03:55 Order name: Labs collected and sent; Complete Time: 04:03 sp4 10/18 03:55 Order name: O2 Per Protocol; Complete Time: 04:03 sp4 10/18 03:55 Order name: O2 Sat Monitoring; Complete Time: 04:03 sp4 EC:26 Rate is 88 beats/min. Rhythm is regular, Sinus Rhythm. QRS Rowley is Normal. HI interval sp4 is normal. QRS interval is normal. QT interval is normal. T waves are Normal. No ST changes noted. Clinical impression: No evidence of ischemia. Interpreted by me. Administered Medications: No medications were administered Disposition Summary: 10/18/22 06:33 Discharge Ordered Location: Home sp4 Problem: new sp4 Symptoms: have improved sp4 Condition: Stable sp4 Diagnosis - Essential (primary) hypertension sp4 Followup: sp4 - With: Private Physician - When: 7 - 10 days - Reason: Recheck today's complaints Discharge Instructions: - Discharge Summary Sheet sp4 - Hypertension, Adult sp4 Forms: - Patient Portal Instructions sp4 Signatures: Dispatcher [employer] Mark San RN RN rv Potepalov, Sergey, MD MD sp4
[2022-10-18 06:42] VITALS: TEMP 98.1; O2SAT 100
[2022-10-18 06:49] VITALS: BP 143/110
--- NOTE | 2022-10-18 18:26 | RAD REPORT ---
EXAM DESCRIPTION: XR Chest, 1 View CLINICAL HISTORY: The patient is 72 years old and is Male; CHEST PAIN TECHNIQUE: Single view of the chest. COMPARISON: No relevant prior studies available. FINDINGS: Lungs: No pulmonary vascular congestion or consolidation. Pleural space: Unremarkable. No pneumothorax. Heart: Unremarkable. No cardiomegaly. Mediastinum: Unremarkable. Bones/joints: No acute fracture visualized. Upper abdomen: Elevated right hemidiaphragm. No free air in the visualized upper abdomen. IMPRESSION: No acute cardiopulmonary process identified. Electronically signed by: Re Sullivan MD 10/18/2022 4:29 AM CDT Due to temporary technical issues with the PACS/Fluency reporting system, reports are being signed by the in house radiologists without review as a courtesy to insure prompt reporting. The interpreting radiologist is fully responsible for the content of the report.
--- NOTE | 2022-10-19 18:13 | EKG ---
Test Date: 2022-10-18 Test Time: 03:45:26 Rf Test Engineer: RV MEASUREMENT RESULTS: Intervals: Rate: 90 RI: 192 QRSD: 110 QT: 372 QTc: 455 [place]: P: 49 RI: 192 QRS: -58 T: 32 INTERPRETIVE STATEMENTS: Normal sinus rhythm Left anterior fascicular block ST & T wave abnormality, consider lateral ischemia Abnormal ECG Compared to ECG 04/19/2022 21:23:38 ST (T wave) deviation now present Possible ischemia now present Left ventricular hypertrophy no longer present T-wave abnormality no longer present Prolonged QT interval no longer present Electronically Signed On 10-19-22 18:11:00 CDT by Moris Timmons
--- NOTE | 2022-10-19 18:13 | EKG ---
Test Date: 2022-10-18 Test Time: 03:46:01 Director Of District Office: RV MEASUREMENT RESULTS: Intervals: Rate: 88 MA: 172 QRSD: 108 QT: 376 QTc: 454 [place]: P: 53 MA: 172 QRS: -64 T: -21 INTERPRETIVE STATEMENTS: Normal sinus rhythm Left anterior fascicular block Nonspecific ST and T wave abnormality Abnormal ECG Compared to ECG 10/18/2022 03:45:26 Possible ischemia no longer present ST (T wave) deviation still present Electronically Signed On 10-19-22 18:10:56 CDT by Moris Timmons
== END 2022-10-18 06:38 | disposition home or self-care (01) ==
LOC: ER 03:28
DX: I10 Essential (primary) hypertension (principal); R07.9 Chest pain, unspecified; R06.02 Shortness of breath; Z88.0 Allergy status to penicillin
CPT/HCPCS: 36415; 71045; 80048; 80076; 83735; 83880; 84484; 85025; 85610; 93005

== ENCOUNTER 2023-12-05 06:30 | Day surgery (SDC) | payer OTHER ==
[2023-12-04 10:55] LABS: Absolute Eosinophils 0.2 K/uL (0-0.5); Absolute Lymphocytes (CBC) 1.4 K/uL (0.7-4.9); Absolute Monocytes 0.3 K/uL (0.1-1.3); Basophils % 0.7 % (0-1.3); Eosinophils % 4.8 % (0-4.4); Hematocrit 39.6 % (39.6-49.0); Hemoglobin 12.8 g/dL (13.6-17.9); Lymphocytes % 36.5 % (15.3-44.8); MCH 24.3 pg (27.0-35.0); MCHC 32.4 g/dL (32.0-36.0); MPV 7.3 fL (7.6-11.3); Monocytes % 7.8 % (3.3-12.3); Neutrophils % 50.2 % (41.7-73.7); Platelets 229 thou/uL (152-406); RBC Red Blood Cell Count 5.28 M/uL (4.33-5.43)
[2023-12-04 10:59] LABS: PTT, Activated Partial Thromb 35.8 SECONDS (24.3-36.9); Protime INR 0.98
[2023-12-04 11:08] LABS: Anion Gap 6.9 mEq/L (5.0-15.0); Potassium 3.9 mEq/L (3.5-5.1)
--- NOTE | 2023-12-04 12:30 | EKG ---
Test Date: 2023-12-04 Test Time: 09:39:24 Medical Records Supervisor: ZACHERY MEASUREMENT RESULTS: Intervals: Rate: 72 NH: 168 QRSD: 114 QT: 374 QTc: 409 [place]: P: 63 NH: 168 QRS: -51 T: 44 INTERPRETIVE STATEMENTS: Normal sinus rhythm Left anterior fascicular block Nonspecific T wave abnormality Abnormal ECG Compared to ECG 10/18/2022 03:46:01 T-wave abnormality now present ST (T wave) deviation no longer present Electronically Signed On 12-04-23 12:29:31 CDT by Celio Santana
--- NOTE | 2023-12-04 12:52 | RAD REPORT ---
EXAMINATION: TWO VIEW CHEST XR CLINICAL INDICATION: Male, 73 years old. [facility] MA[facility] Pre op pending heart catheterization. Hypertension TECHNIQUE: 2 view radiographs of the chest were performed. COMPARISON: 10/18/2022 FINDINGS: The lungs are well inflated and clear. No pneumothorax or sizable effusion. The heart is normal in si ze. Mediastinal contours are unremarkable. IMPRESSION: No acute or significant abnormalities.
[2023-12-05] MEDS ORDERED: NA CHLORIDE 0.9% 500 ML ONE (06:52)
[2023-12-05] MEDS ORDERED: HEPA 1000U/500MLS 2,000 UNIT/1,000 ML BAG IV ONE (06:55)
[2023-12-05] MEDS ORDERED: NITROGLYCERIN/D5W 50 MG/250 ML BTL IV ONE (06:56)
[2023-12-05] MEDS ORDERED: LIDOCAINE 1% 20 ML MDV ONE (06:56)
[2023-12-05] MEDS ORDERED: ATROPINE SULF 1 MG/10 ML SYR IV ONE (06:56)
[2023-12-05] MEDS ORDERED: HEPARIN 10,000 UNIT/10 ML VIAL IV ONE (06:56)
[2023-12-05] MEDS ORDERED: FENTANYL CITR 100 MCG/2 ML ONE (06:56)
[2023-12-05] MEDS ORDERED: CLOPIDOGREL 75 MG TABLET ONE (06:57)
[2023-12-05] MEDS ORDERED: ASPIRIN 325 MG TAB ONE (06:57)
[2023-12-05] MEDS ORDERED: HEPARIN 5000 UNIT/ML 1 ML VIAL ONE ×2 (06:57→07:14)
[2023-12-05] MEDS ORDERED: TICAGRELOR 90 MG TABLET PO ONE (06:57)
[2023-12-05] MEDS ORDERED: MIDAZOLAM HCL 2 MG/2 ML INJ ONE ×2 (06:57→07:14)
--- NOTE | 2023-12-05 08:48 | OP ---
Date of Procedure: 12/05/2023 Surgeon: Celio Santana Procedure Performed: Selective coronary angiogram. Indication For Procedure: Chest pain, abnormal stress test. Complications: None. Estimated Blood Loss: Less than 50 cc. Access: Right radial, closed by TR band. Sedation Time: 20 minutes with 1 of Versed and 50 of fentanyl. Description Of Procedure: After risks, benefits, and alternatives were explained to the patient, pat ient agreed to the procedure and signed informed consent. The patient was brought back to the cath l ab, prepped and draped in sterile fashion. Time-out was performed. Sedation was administered. Next , right radial access was obtained. [place] 4 catheter was advanced over J-wire to the aortic root. S elective angiogram was done of the left and right coronary systems. The catheter was removed over th e J-wire. Sheath was removed. TR band was applied. Hemostasis was achieved and patient was moved b [facility] to recovery in stable condition. Findings: 1.Left main: Normal. 2.LAD: Proximal mild luminal irregularities. The mid 20% diseased and mild luminal irregularities with a large diagonal with mild luminal irregularities. 3.Left circ: Mild luminal regularities. 4.RCA: Dominant, mid 20% to 30% diseased and mild luminal irregularities. Assessment And Plan: Mild nonobstructive coronary artery disease. Plan will be to continue medical management. HEIDY/SARA Voice ID: [id number] Report ID: [id number]
[2023-12-05 09:53] VITALS: O2SAT 100
[2023-12-05 10:47] VITALS: BP 128/83
== END 2023-12-05 10:40 | disposition home or self-care (01) ==
LOC: CCL 06:30
PROVIDERS: ATTEND Internal Medicine Interventional Cardiology
DX: I25.10 Atherosclerotic heart disease of native coronary artery without angina pectoris (principal); I11.0 Hypertensive heart disease with heart failure; I50.21 Acute systolic (congestive) heart failure; I65.23 Occlusion and stenosis of bilateral carotid arteries; Z87.891 Personal history of nicotine dependence; Z79.82 Long term (current) use of aspirin; Z79.899 Other long term (current) drug therapy; Z88.0 Allergy status to penicillin
CPT/HCPCS: 36415; 71046; 76937; 80048; 85025; 85610; 85730; 93005; 93454; 99152; 99153; C1893; J0461; J1644; J2001; J2250; J3010; J7040; Q9966